=== PATIENT | female | born 1935 | race Asian ===

== ENCOUNTER 2018-12-06 15:23 | Emergency (ER) | payer MEDICARE ==
[~2018-12-06] VITALS: Ht 152.4 cm; Wt 49.9 kg
[2018-12-06] MEDS ORDERED: SIMVASTATIN5 MG ORAL (15:27)
[2018-12-06] MEDS ORDERED: LEVOTHYROXINE75 MCG ORAL (15:27)
[2018-12-06] MEDS ORDERED: AMLODIPINE BES2.5 MG ORAL (15:27)
--- NOTE | 2018-12-06 15:29 | Emergency Room Report ---
History of Present Illness General Chief Complaint: Multiple Trauma/Fall Source: EMS Present Illness HPI Patient is 83-year-old female presented after a fall approximately 1 hour prior to arrival. Patient denied loss of consciousness. She reports striking her head. She reports having pain to the right shoulder area. She denies any other locations of pain at this time. She states she has prior history of hypertension as well as high cholesterol. She reports having increased pain to the shoulder with movement. She denies taking any anticoagulants or blood thinners Allergies: Coded Allergies: VERAPAMIL (Verified Allergy, Unknown, 05/02/11) Patient History Past Medical History: see triage record Reviewed Nursing Documentation: PMH: Agreed; PSxH: Agreed Nursing Documentation-PMH Past Medical History: No History, Except For Hx Hypertension: Yes - thyroid Review of Systems All Other Systems: negative except mentioned in HPI Physical Exam Vital Signs Date Time Temp Pulse Resp B/P (MAP) Pulse Ox O2 Delivery O2 Flow Rate FiO2 12/06/18 15:24 98.6 98 16 161/80 (107) 100 Room Air Procedures Laceration/Wound Repair Laceration/Wound Repair : Consent: Emergent Wound Location: face Wound's Depth, Shape: superficial, linear Wound Length (cm): 2 Irrigated w/ Saline (ccs): 30 Betadine Prep?: Yes Anesthesia: Lidocaine w/ Epi Volume Anesthetic (ccs): 4 Wound Debrided: None Wound Repaired With: sutures Suture Size/Type: 6:0 Number of Sutures: 6 Deep Layer Suture Size/Type: 5:0, other - vicryl Number Deep Layer Sutures: 4 Sterile Dressing Applied?: Yes Patient Tolerated: Well Complications: None Medical Decision Making Diagnostic Impression: Primary Impression: Closed fracture dislocation of right shoulder Additional Impressions: Forehead laceration Fall Labs Test 12/06/18 15:55 White Blood Count 5.4 K/UL (4.8-10.8) Red Blood Count 4.30 M/UL (4.20-5.40) Hemoglobin 13.5 G/DL (12.0-16.0) Hematocrit 39.7 % (37.0-47.0) Mean Corpuscular Volume 92 FL (80-99) Mean Corpuscular Hemoglobin 31.4 PG (27.0-31.0) Mean Corpuscular Hemoglobin Concent 34.0 G/DL (32.0-36.0) Red Cell Distribution Width 10.8 % (11.6-14.8) Platelet Count 198 K/UL (150-450) Mean Platelet Volume 6.1 FL (6.5-10.1) Neutrophils (%) (Auto) 56.7 % (45.0-75.0) Lymphocytes (%) (Auto) 32.9 % (20.0-45.0) Monocytes (%) (Auto) 5.8 % (1.0-10.0) Eosinophils (%) (Auto) 2.9 % (0.0-3.0) Basophils (%) (Auto) 1.7 % (0.0-2.0) Prothrombin Time 9.6 SEC (9.30-11.50) Prothromb Time International Ratio 0.9 (0.9-1.1) Activated Partial Thromboplast Time 22 SEC (23-33) Sodium Level 146 MMOL/L (136-145) Potassium Level 3.7 MMOL/L (3.5-5.1) Chloride Level 111 MMOL/L (98-107) Carbon Dioxide Level 26 MMOL/L (21-32) Anion Gap 9 mmol/L (5-15) Blood Urea Nitrogen 21 mg/dL (7-18) Creatinine 0.9 MG/DL (0.55-1.30) Estimat Glomerular Filtration Rate mL/min (>60) Glucose Level 122 MG/DL (74-106) Calcium Level 9.2 MG/DL (8.5-10.1) Total Bilirubin 0.4 MG/DL (0.2-1.0) Aspartate Amino Transf (AST/SGOT) 22 U/L (15-37) Alanine Aminotransferase (ALT/SGPT) 20 U/L (12-78) Alkaline Phosphatase 78 U/L (46-116) Total Protein 7.0 G/DL (6.4-8.2) Albumin 3.3 G/DL (3.4-5.0) Globulin 3.7 g/dL Albumin/Globulin Ratio 0.9 (1.0-2.7) EKG Diagnostic Results Rate: normal - 70 Rhythm: NSR ST Segments: no acute changes Last Vital Signs Date Time Temp Pulse Resp B/P (MAP) Pulse Ox O2 Delivery O2 Flow Rate FiO2 12/06/18 15:24 98.6 98 16 161/80 (107) 100 Room Air Scripts Bacitracin Zinc* (BACITRACIN ZINC*) 1 Each Packet 1 APPLIC TOPIC THREE TIMES A DAY, #20 PACKET Prov: Juan Daniel Perry MD 12/06/18 Diclofenac Sodium (VOLTAREN) 100 Gm Gel..gram. 5 GM TP TWICE A DAY for pain, #100 GM Prov: Juan Daniel Perry MD 12/06/18 Acetaminophen (MAPAP) 500 Mg Capsule 500 MG PO EVERY 6 HOURS for pain, #30 CAP Prov: Juan Daniel Perry MD 12/06/18 Juan Daniel Perry MD Dec 06, 2018 15:29
--- NOTE | 2018-12-06 15:36 | NUR ---
ED Nurse Note: Patient in bed 2 assisted into gown. Small laceration above the right eye - no active bleed. A&O 4. Complaining of fall - states she tripped - pain to the right arm from the elbow to shoulder - 9 out of 10 sharp pain - no headache - no vomitting TAVARES. Monitor attached dr in attendance.
[2018-12-06] MEDS ORDERED: Morphine Sulfate 2mg/ml Inj(IV/IM USE ONLY) IVP ONE (16:00)
--- NOTE | 2018-12-06 16:01 | NUR ---
ED Nurse Note: pt went down for imaging in stable condition.
[2018-12-06 16:12] LABS: ANION GAP 9 mmol/L (5-15); BASOPHILS % (AUTO) 1.7 % (0.0-2.0); BLOOD UREA NITROGEN 21 mg/dL (7-18); CALCIUM 9.2 MG/DL (8.5-10.1); CARBON DIOXIDE 26 MMOL/L (21-32); CHLORIDE 111 MMOL/L (98-107); CREATININE 0.9 MG/DL (0.55-1.30); EOSINOPHILS % (AUTO) 2.9 % (0.0-3.0); HEMATOCRIT 39.7 % (37.0-47.0); HEMOGLOBIN 13.5 G/DL (12.0-16.0); LYMPHOCYTES % (AUTO) 32.9 % (20.0-45.0); MEAN CORPUSCULAR VOLUME 92 FL (80-99); MONOCYTES % (AUTO) 5.8 % (1.0-10.0); NEUTROPHILS % (AUTO) 56.7 % (45.0-75.0); PLATELET COUNT 198 K/UL (150-450); POTASSIUM 3.7 MMOL/L (3.5-5.1); RED CELL DISTRIBUTION WIDTH 10.8 % (11.6-14.8); SODIUM 146 MMOL/L (136-145); WHITE BLOOD COUNT 5.4 K/UL (4.8-10.8)
[2018-12-06 16:16] LABS: ALANINE AMINOTRANSFERASE 20 U/L (12-78); ALBUMIN 3.3 G/DL (3.4-5.0); ALBUMIN/GLOBULIN RATIO 0.9 (1.0-2.7); ALKALINE PHOSPHATASE 78 U/L (46-116); ASPARTATE AMINO TRANSFERASE 22 U/L (15-37); BILIRUBIN,TOTAL 0.4 MG/DL (0.2-1.0); INR 0.9 (0.9-1.1)
--- NOTE | 2018-12-06 16:23 | NUR ---
ED Nurse Note: pt came back from imaging in stable condition.
--- NOTE | 2018-12-06 16:32 | NUR ---
ED Nurse Note: Patient retruned from makenna Saxena Dr in attendance.
[2018-12-06 16:33] VITALS: BP 172/71
--- NOTE | 2018-12-06 16:37 | NUR ---
ED Nurse Note: Shoulder reduced by Dr - repeat xray being taken at present. Vital signs as recorded.
--- NOTE | 2018-12-06 16:37 | NUR ---
ED Nurse Note: x-ray at bedside.
--- NOTE | 2018-12-06 16:44 | Diagnostic Imaging Report ---
Indication: Pain status post injury. Altered mental status. Technique: Continuous helical CT scanning of the head was performed utilizing automated exposure control without intravenous contrast material. Axial and coronal reconstructions were obtained. Comparison: None CT dose: Total DLP 1455.2 mGycm; CTDI vol 70.38,10.47 mGy Findings: There is no acute intracranial hemorrhage, mass effect or cortical edema. Is no shift of the midline structures. Parks-white differentiation appears preserved. The ventricles, cisterns and sulci are prominent consistent with atrophy. Periventricular hypoattenuation is seen, a nonspecific finding. There are atherosclerotic vascular calcifications. Small symmetric bilateral basal ganglia calcifications are noted. There is mild soft tissue swelling and small right supraorbital scalp hematoma with skin irregularity and punctate foci of subcutaneous gas consistent with laceration. No acute skull fracture identified. Mastoid air cells and paranasal sinuses are clear. Globes are symmetric. There is no rotation of the conal fat bilaterally. IMPRESSION: Right superolateral laceration with associated small scalp hematoma. No acute skull fracture. No evidence of acute intracranial hemorrhage, mass effect or cortical edema. Atrophy and nonspecific periventricular hypoattenuation suggestive of chronic ischemic microvascular changes. The CT scanner at [facility] is accredited by the [employer] and the scans are performed using protocols designed to limit radiation exposure to as low as reasonably achievable to attain images of sufficient resolution adequate for diagnostic evaluation.
--- NOTE | 2018-12-06 16:48 | Diagnostic Imaging Report ---
Indication: Pain status post injury Technique: CT cervical spine was performed utilizing automated exposure control without intravenous contrast material. Axial and sagittal images were generated. CT dose: Total DLP 1455.2 mGycm; CTDI vol 70.38,10.47 mGy Comparison: None Findings: There is no acute cervical spine fracture. There is mild straightening of the cervical lordosis without evidence of spondylolisthesis. There are overall moderate to severe multilevel discogenic degenerative changes of the cervical spine manifested by multilevel disc space narrowing with endplate sclerosis and productive change, subchondral cysts are also noted. There is also multilevel facet and uncovertebral joint hypertrophy. Degenerative changes result in varying degrees of overall mild to moderate bony central canal stenosis and mild to moderate multilevel bony foraminal stenosis. Please note that the central cord, disks and nerve roots are better evaluated on MRI which can be obtained for more sensitive evaluation as clinically indicated. There is no prevertebral soft tissue fluid collection or hematoma. The airways patent. Coarse calcifications noted within the right lobe of the thyroid. Imaged lung apices are clear. There atherosclerotic vascular calcifications with dense calcification is noted at the right carotid bifurcation. IMPRESSION: No evidence of acute cervical spine fracture or traumatic malalignment. Overall moderate to severe multilevel discogenic degenerative changes of the cervical spine. Atherosclerotic disease. Coarse calcification within the right lobe of the thyroid. Recommend follow-up thyroid ultrasound on a routine basis. The CT scanner at [facility] is accredited by the [employer] and the scans are performed using protocols designed to limit radiation exposure to as low as reasonably achievable to attain images of sufficient resolution adequate for diagnostic evaluation.
[2018-12-06 16:50] VITALS: BP 172/71
--- NOTE | 2018-12-06 17:14 | Diagnostic Imaging Report ---
Indication: Pain status post injury Technique: XRAY Shoulder Compl R Comparison: None Findings: There is an acute, displaced and mildly comminuted fracture of the humeral head. There is associated anterior dislocation of the glenohumeral joint. Imaged portions of the right lung grossly clear. Impression: Acute fracture-dislocation of the right shoulder as above.
--- NOTE | 2018-12-06 17:18 | Diagnostic Imaging Report ---
Indication: Shoulder pain, fracture, status post reduction Technique: XRAY Shoulder Ltd 1v R Comparison: None FINDINGS/IMPRESSION: Interval reduction of the previously seen anterior shoulder dislocation. Acute fracture of the humeral head has improved alignment status post reduction.
[2018-12-06] MEDS ORDERED: Lidocaine 1% 10mg/ml/Epi 0.005mg/ml 10ml vial INJ ONE (18:00)
--- NOTE | 2018-12-06 18:11 | NUR ---
ED Nurse Note: ERMD suturing Rt upper eyebrow at bedside.
[2018-12-06] MEDS ORDERED: BACITRACIN ZIN1 EACH TOPIC (18:23)
[2018-12-06] MEDS ORDERED: MAPAP500 M2 PO (18:23)
[2018-12-06] MEDS ORDERED: VOLTAREN100 G1 TP (18:23)
[2018-12-06] MEDS ORDERED: Tetanus/Diptheria/Pertussis IM ONE (18:30)
[2018-12-06] MEDS ORDERED: Neosporin Oint Ud Pkt TOPIC ONE (18:30)
[2018-12-06 19:09] VITALS: BP 129/83
--- NOTE | 2018-12-06 19:12 | NUR ---
ER DISCHARGE NOTE: Patient is cleared to be discharged per ERMD, pt is aox4, on room air, with stable vital signs. pt was given dc and prescription instructions, pt was able to verbalize understanding, pt id band and iv site removed without complications. pt is able to ambulate with steady gait. pt took all belongings. Patient collected by niece she will stay with her niece tonight. Patient educated on how to dress and undress pre discharge and verbalised understanding.
== END 2018-12-06 19:09 | disposition home or self-care (01) ==
LOC: EDBD 15:23 → EMR 16:00
DX: S42.291A Other displaced fracture of upper end of right humerus, initial encounter for closed fracture (principal); S01.81XA Laceration without foreign body of other part of head, initial encounter; S43.014A Anterior dislocation of right humerus, initial encounter; I10 Essential (primary) hypertension; E78.00 Pure hypercholesterolemia, unspecified; Z88.8 Allergy status to other drugs, medicaments and biological substances; Z23 Encounter for immunization; W01.10XA Fall on same level from slipping, tripping and stumbling with subsequent striking against unspecified object, initial encounter; Y92.9 Unspecified place or not applicable
CPT/HCPCS: 12011; 23675; 36415; 70450; 72125; 73020; 73030; 80053; 85025; 85610; 85730; 90471; 90715; 96374; 99284; J2270